=== PATIENT | female | born 1970 ===

== ENCOUNTER 2017-01-09 11:39 | Day surgery (SDC) | payer OTHER ==
[2017-01-05 09:08] VITALS: BMI 21.5
[2017-01-09] MEDS ORDERED: Lactated Ringer's 1,000 ML IV ONE (12:00)
[2017-01-09 12:21] VITALS: RESP 18
[2017-01-09 12:24] LABS: BASO # 0.1 K/uL (0.0-0.2); BASO % 0.8 % (0.0-2.0); EOS # 0.3 K/uL (0.0-0.7); EOS % 2.7 % (0.0-4.0); HEMATOCRIT 36.5 % (34.0-47.0); LYMPH # 2.7 K/uL (1.0-4.3); LYMPH % 28.2 % (20.0-40.0); MEAN CELL VOLUME 82.3 fl (81.0-99.0); MEAN CORPUSCULAR HEMOGLOBIN 27.3 pg (27.0-31.0); MEAN CORPUSCULAR HGB CONC 33.2 g/dL (33.0-37.0); MEAN PLATELET VOLUME 10.2 fl (7.2-11.7); MONO # 0.5 K/uL (0.0-0.8); MONO % 5.2 % (0.0-10.0); NEUT # 5.9 K/uL (1.8-7.0); NEUT % 63.1 % (50.0-75.0); RED CELL DISTRIBUTION WIDTH 14.5 % (11.5-14.5); WHITE BLOOD COUNT 9.4 K/uL (4.8-10.8)
[2017-01-09] MEDS ORDERED: Lidocaine 2% w Epi 1:100,000 Inj IJ ONE (12:59)
[2017-01-09] MEDS ORDERED: Bupivacaine 0.5% Inj(30mL) ONE (12:59)
[2017-01-09] MEDS ORDERED: Midazolam 2 MG/2 ML VIAL ONE (13:01)
[2017-01-09] MEDS ORDERED: Propofol 10 mg/ml Inj (20 ML) ONE (13:01)
[2017-01-09] MEDS ORDERED: HYDROmorphone 0.5 mg/0.5 ml ISec IVP PRN (14:17)
--- NOTE | 2017-01-09 14:22 | PCM.SURG1 ---
Surgeon's Initial Post Op Note - Surgeon's Notes Surgeon: Dr. Lujan Crate Icer: Dr. Victoria DPM [id number] Type of Anesthesia: General Mask Anesthesia Administered By: Dr. Spencer Pre-Operative Diagnosis: left shoulder soft tissue mass Operative Findings: see dictation Post-Operative Diagnosis: left shoulder lipoma Operation Performed: left shoulder lipoma removal Specimen/Specimens Removed: soft tissue mass Estimated Blood Loss: EBL {In ML}: 2 Blood Products Given: N/A Drains Used: No Drains Post-Op Condition: Good Date of Surgery/Procedure: 01/09/17 Time of Surgery/Procedure: 13:35
--- NOTE | 2017-01-09 14:31 | CP.SDSHP ---
Same Day Surgery H & P - Allergies Allergies: Allergies No Known Allergies Allergy (Verified 01/05/17 09:08) - Physical Exam Vital Signs: Vital Signs 01/09/17 12:20 Temperature 98.2 F Pulse Rate 70 Respiratory 18 Rate Blood Pressure 106/70 O2 Sat by Pulse 99 Oximetry Short Stay Discharge - Short Stay Discharge Admitting Diagnosis/Reason for Visit: D17.9 Disposition: HOME/ ROUTINE Referrals: Alen Sanon MD [Primary Care Provider] - Follow-up: follow up with Dr. Lujan as outpatient Additional Instructions (Diet, Activity): keep dressing clean,dry,intact until follow up with Dr. Lujan
--- NOTE | 2017-01-09 14:56 | OP ---
PROCEDURE DATE: 01/09/2017 SURGEON: Dr. Lujan [employer]AY FOAM INSTALLER: Dr. Victoria ANESTHESIA: General, Dr. Spencer. PREOPERATIVE DIAGNOSIS: Left shoulder mass. POSTOPERATIVE DIAGNOSIS: Left shoulder mass. PROCEDURE: Excision soft tissue mass, left shoulder. DESCRIPTION OF OPERATION: With the patient anesthetized via LMA, she was positioned in a right side down lateral position with proper padding. The left shoulder area was prepped and draped in the usua l sterile manner. A 2-inch soft, rounded mass was noted on the posterior aspect of the shoulder, adri roximately overlying the edge of the deltoid muscle. A transverse incision was made over this mass, taken down through the subcutaneous tissue and deep within the subcutaneous tissue, a soft, slightly protuberant mass was noted with the gross appearance of a lipoma. The mass was easily freed from the surrounding soft tissue on the superficial aspect and also on the deep aspect overlying the muscle a nd with gentle pressure, the mass was delivered into the wound. A small amount of fibrous attachment on the deep aspect was divided with the cautery and the mass was removed. It was yellow and had the gross appearance of a lipoma. The operative site was examined for hemostasis and closure was perfor med with running subcuticular suture of 4-0 Monocryl and Steri-Strips. Dry sterile dressing was appl ied. The patient tolerated the procedure well and transferred to the recovery room in stable conditi on. Estimated blood loss for the procedure was 2 mL. Paula Lujan MD cc: 58 TT: 01/09/2017 14:55:20 en
[2017-01-09 16:00] VITALS: O2SAT 97
[2017-01-09 17:52] VITALS: BP 109/75; PULSE 79; TEMP 98.2
--- NOTE | 2017-01-09 18:39 | CARD ---
APPROVED REPORT EKG Measurement Heart [id number] AL [id number] <Conclusion> Normal sinus rhythm Normal ECG
== END 2017-01-09 18:20 | disposition home or self-care (01) ==
LOC: H.OPSURG 11:39
PROVIDERS: ATTEND Specialist
DX: D21.12 Benign neoplasm of connective and other soft tissue of left upper limb, including shoulder (principal); J45.909 Unspecified asthma, uncomplicated; K21.9 Gastro-esophageal reflux disease without esophagitis